=== PATIENT | male | born 2000 | race Asian ===

== ENCOUNTER 2018-10-08 13:27 | Emergency (ER) | payer SELFPAY ==
[2018-10-08] MEDS ORDERED: NS 0.9% 1000 ML** 1,000 ML IV ONE (13:39)
[2018-10-08 15:09] VITALS: BP 126/71
--- NOTE | 2018-10-08 16:51 | ED ---
Substance Abuse/Use - HPI Summary HPI Summary: Patient is a 18-year-old male presenting to the ED from [place]/[facility] with stating he is feeling tightness in his throat after ingesting edibles and gummies. He also states he took some peanut butter, but denies allergy to such. On arrival, he denies any shortness of breath or tight feeling in his throat at this time. He states this is the first time having edibles. He denies any alcohol use. He is denying CP, SOB, abdominal pain, headache, loss of consciousness, syncope. He states he had too many edibles and feels that he has a "slow-moving brain right now." - History Of Current Complaint Chief Complaint: EDSubstanceAbuse Stated Complaint: ALCOHOL CONSUMPTION PER EMS Time Seen by Provider: 10/08/18 13:29 Hx Obtained From: Patient Hx From Patient Unobtainable Due To: Altered Mental Status Onset/Duration of Drug/ETOH Abuse: Hours Ingestion History: Type/Name Of Drug - cannibus Overdose Characteristics: Oral Timing Of Abuse: Binge Use Severity Initially: Moderate Severity Currently: Mild Aggravating Factor(s): Nothing Alleviating Factor(s): Nothing Associated Signs And Symptoms: Intentional Ingestion - Risk Factor(s) Completed Suicide Risk Factors: Negative - Allergies/Home Medications Allergies/Adverse Reactions: Allergies Allergy/AdvReac Type Severity Reaction Status Date / Time No Known Allergies Allergy Verified 10/08/18 13:38 Home Medications: Home Medications NK [No Home Medications Reported] 10/08/18 [History Confirmed 10/08/18] PMH/Surg Hx/FS Hx/Imm Hx Previously Healthy: Yes - Immunization History Hx Pertussis Vaccination: No Immunizations Up to Date: Yes Infectious Disease History: No Infectious Disease History: Denies: Traveled Outside the [place] in Last 30 Days - Social History Occupation: Unemployed, Student Lives: Dormitory/Roommates Alcohol Use: Weekly Hx Substance Use: Yes Substance Use Type: Reports: Marijuana Hx Tobacco Use: No Smoking Status (MU): Never Smoked Tobacco Review of Systems Negative: Fever, Chills, Fatigue Negative: Palpitations, Chest Pain Genitourinary: Negative Positive: no symptoms reported, see HPI Negative: Rash, Bruising Neurological: Negative All Other Systems Reviewed And Are Negative: Yes Physical Exam Triage Information Reviewed: Yes Vital Signs On Initial Exam: Initial Vitals Temp Pulse Resp BP Pulse Ox 98.0 F 84 18 121/73 95 10/08/18 13:29 10/08/18 13:29 10/08/18 13:29 10/08/18 13:29 10/08/18 13:29 Vital Signs Reviewed: Yes Completion Of Physical Exam Limited Due To: Altered Mental Status Appearance: Positive: Well-Appearing Skin: Positive: Skin Color Reflects Adequate Perfusion Head/Face: Positive: Normal Head/Face Inspection Eyes: Positive: EOMI, Conjunctiva Clear Neck: Positive: Supple, No Lymphadenopathy Respiratory/Lung Sounds: Positive: Clear to Auscultation, Breath Sounds Present Cardiovascular: Positive: RRR, Pulses are Symmetrical in both Upper and Lower Extremities Musculoskeletal: Positive: Strength/ROM Intact Neurological: Positive: Speech Normal Psychiatric: Positive: Affect/Mood Appropriate AVPU Assessment: Alert - Dede Coma Scale Best Eye Response: 4 - Spontaneous Best Motor Response: 6 - Obeys Commands Best Verbal Response: 5 - Oriented Coma Scale Total: 15 Diagnostics - Vital Signs Vital Signs Temp Pulse Resp BP Pulse Ox 10/08/18 15:07 98.8 F 80 16 126/71 99 10/08/18 14:47 98.9 F 10/08/18 14:32 69 120/75 98 10/08/18 14:02 68 114/67 92 10/08/18 14:00 67 94 10/08/18 13:37 80 92 10/08/18 13:32 82 121/73 93 10/08/18 13:29 98.0 F 84 18 121/73 95 - Laboratory Lab Results: Lab Results 10/08/18 Range/Units 13:55 Serum Alcohol < 10 (<10) mg/dL Lab Statement: Any lab studies that have been ordered have been reviewed, and results considered in the medical decision making process. Course/Dx - Course Course Of Treatment: Patient is evaluated for drug use and alcohol use. Alcohol less than 10. Patient states he is feeling well, but was sent here for a possible allergic reaction as he felt some throat tightening after he ingested several Gummi's. He does not feel this at this time. He denies any SOB or CP. He states he feels his brain is moving very slowly. He denies hitting his head or LOC. He denies any headache. He is laughing and alert and oriented 3. He is cooperative and responding well to questions. After approximately 3.5 hours in the ED, patient is able to be discharged home at this time. Safe ride back to [place]. His vital signs are stable upon discharge. - Diagnoses Provider Diagnoses: Marijuana use Discharge - Sign-Out/Discharge Documenting (check all that apply): Patient Departure Patient Received Moderate/Deep Sedation with Procedure: No - Discharge Plan Condition: Stable Disposition: HOME Patient Education Materials: Polysubstance Abuse (ED) Referrals: No Primary Care Phys,NOPCP [Primary Care Provider] - Additional Instructions: Do not drink alcohol or use drugs Drink plenty of water or gatorade today - Billing Disposition and Condition Condition: STABLE Disposition: Home
== END 2018-10-08 15:07 | disposition home or self-care (01) ==
LOC: ED 13:27
DX: F12.90 Cannabis use, unspecified, uncomplicated (principal)
CPT/HCPCS: 36415; 80320; 96360; 99282; G0480